=== PATIENT | female | born 1940 | race Caucasian/White ===

== ENCOUNTER → 2024-03-18 10:50 | Outpatient (CLI) | payer MEDICARE, OTHER, SELFPAY | PROVIDERS: PCP Physician Assistant Medical; Visit Provider Physician Assistant Medical | DX: S80.819A Abrasion, unspecified lower leg, initial encounter (principal); L03.90 Cellulitis, unspecified | CPT/HCPCS: 87070; 87075; 87205 ==

== ENCOUNTER → 2024-05-18 10:48 | Outpatient (CLI) | payer MEDICARE, OTHER, SELFPAY | PROVIDERS: PCP Physician Assistant Medical; Visit Provider Physician Assistant Medical | DX: L03.90 Cellulitis, unspecified (principal); S80.819A Abrasion, unspecified lower leg, initial encounter; L03.116 Cellulitis of left lower limb; S80.812A Abrasion, left lower leg, initial encounter; I10 Essential (primary) hypertension; E03.9 Hypothyroidism, unspecified | CPT/HCPCS: 87070; 87075; 87205 ==

== ENCOUNTER → 2024-05-25 11:28 | Outpatient (CLI) | payer MEDICARE, OTHER, SELFPAY ==
[2024-05-25 19:09] LABS: Hematocrit 39.7 % (36-46); Hemoglobin 13.3 g/dL (12.0-16.0); Mean Corpuscular HGB Conc 33.6 % (30-36); Mean Corpuscular Hemoglobin 30.8 PG (26-34); Mean Corpuscular Volume 91.5 fL (80-100); Platelet Count 234 X10^3/uL (150-400); Red Blood Cell Count 4.33 X10^6/uL (4.0-5.2); Red Cell Distribution Width 13.6 % (11.6-14.8); White Blood Cell Count 4.5 X10^3/uL (4.5-11.0)
[2024-05-25 19:23] LABS: Alanine Aminotransferase 17 IU/L (<35); Albumin 4.1 g/dL (3.5-5.0); Albumin Globulin Ratio 1.7 (1.0-2.8); Alkaline Phosphatase 67 U/L (38-126); Aspartate Aminotransferase 24 IU/L (14-36); BUN Creatinine Ratio 25.9 (6-22); Bilirubin Total 0.7 mg/dL (0.2-1.3); Blood Urea Nitrogen 29 mg/dL (7-17); C-Reactive Protein Quant < 0.5 mg/dL (<1.0); Calcium 9.2 mg/dL (8.4-10.2); Carbon Dioxide 27 mmol/L (22-32); Chloride 105 mmol/L (98-107); Cholesterol 253 mg/dL (140-199); Estimated Glomerular Filt Rate 49 mL/min (>60); Globulin 2.4 g/dL (1.7-4.1); Glucose 79 mg/dL (80-110); HDL Cholesterol 100 mg/dL (40-60); HEMOLYSIS < 15 (0-50); LDL Cholesterol Calculated 137 mg/dL (<100); Potassium 4.6 mmol/L (3.4-5.1); Sodium 138 mmol/L (137-145); Total Protein 6.5 g/dL (6.3-8.2); Triglycerides 82 mg/dL (35-150)
[2024-05-25 19:43] LABS: TSH w/ Reflex to FT4 2.04 uIU/mL (0.47-4.68)
[2024-05-25 20:13] LABS: Erythrocyte Sedimentation Rate 7 MM/HR (0-20)
== END ==
PROVIDERS: PCP Physician Assistant Medical; Visit Provider Physician Assistant Medical
DX: E03.9 Hypothyroidism, unspecified (principal); E78.00 Pure hypercholesterolemia, unspecified; I10 Essential (primary) hypertension; N19 Unspecified kidney failure; L03.116 Cellulitis of left lower limb; S80.812A Abrasion, left lower leg, initial encounter
CPT/HCPCS: 80053; 80061; 84443; 85027; 85651; 86140

== ENCOUNTER → 2024-05-26 16:27 | Outpatient (CLI) | payer MEDICARE, OTHER, SELFPAY | PROVIDERS: PCP Physician Assistant Medical; Visit Provider Physician Assistant Medical | DX: R82.998 Other abnormal findings in urine (principal); Z87.440 Personal history of urinary (tract) infections | CPT/HCPCS: 87086 ==

== ENCOUNTER → 2024-06-15 10:51 | Outpatient (CLI) | payer MEDICARE, OTHER, SELFPAY ==
[2024-06-15 18:57] LABS: Alanine Aminotransferase 23 IU/L (<35); Albumin 3.8 g/dL (3.5-5.0); Albumin Globulin Ratio 1.4 (1.0-2.8); Alkaline Phosphatase 69 U/L (38-126); Aspartate Aminotransferase 68 IU/L (14-36); BUN Creatinine Ratio 27.7 (6-22); Bilirubin Total 0.7 mg/dL (0.2-1.3); Blood Urea Nitrogen 23 mg/dL (7-17); Calcium 8.9 mg/dL (8.4-10.2); Carbon Dioxide 26 mmol/L (22-32); Chloride 105 mmol/L (98-107); Estimated Glomerular Filt Rate > 60 mL/min (>60); Globulin 2.7 g/dL (1.7-4.1); Glucose 96 mg/dL (80-110); HEMOLYSIS 35 (0-50); Sodium 136 mmol/L (137-145); Total Protein 6.5 g/dL (6.3-8.2)
[2024-06-15 19:30] LABS: TSH w/ Reflex to FT4 1.71 uIU/mL (0.47-4.68)
[2024-06-15 19:43] LABS: Creatinine Urine Random 80.92 mg/dL
[2024-06-15 19:52] LABS: Microalbumin Urine Random < 0.6 mg/dL (0-1.6)
== END ==
PROVIDERS: PCP Physician Assistant Medical; Visit Provider Physician Assistant Medical
DX: E03.9 Hypothyroidism, unspecified (principal); N19 Unspecified kidney failure
CPT/HCPCS: 80053; 82043; 82570; 84443

== ENCOUNTER → 2024-06-22 12:15 | Outpatient (CLI) | payer MEDICARE, OTHER, SELFPAY ==
[2024-06-22 21:02] LABS: Influenza A - CEPHEID Flu A NEGATIVE (NEGATIVE); Influenza B - CEPHEID Flu B NEGATIVE (NEGATIVE); Respiratory Syncytial Virus Negative (Negative)
[2024-06-22 21:48] LABS: COVID-19 CEPHEID 4-PLEX PCR Negative (Negative)
== END ==
PROVIDERS: PCP Physician Assistant Medical; Visit Provider Physician Assistant Medical
DX: J06.9 Acute upper respiratory infection, unspecified (principal)
CPT/HCPCS: 0241U

== ENCOUNTER → 2025-06-23 10:44 | Outpatient (CLI) | payer MEDICARE, OTHER, SELFPAY ==
--- NOTE | 2025-06-23 10:50 | DI.MG.S_ITS ---
MM diagnostic mammo unilat LT, US breast LT limited: 06/23/2025 BI-RADS: 3 CLINICAL: 84-year old female for left diagnostic mammogram and left diagnostic breast ultrasound. Tyrer-Cuzick lifetime risk of 0.2%. No personal or first-degree family history of breast cancer. The patient presents for additional evaluation of an inconclusive screening mammogram. PRIOR EXAMS Outside films dated 04/06/2025, 04/01/2024. MAMMOGRAPHY TECHNIQUE: 2D and 3D (tomosynthesis) digital mammographic views obtained, with additional images as needed for full coverage. Current study was also evaluated with a Computer Aided Detection (CAD) system. ULTRASOUND TECHNIQUE Real-time chase scale imaging of the area of clinical interest was performed with image documentation. TARGETED Left Breast Ultrasound: Real-time ultrasound exam was performed focused to area of clinical and/or imaging concern. DENSITY Left: B. There are scattered areas of fibroglandular density. MAMMOGRAPHY FINDINGS Left: CC only, Outer, Middle depth, measuring 0.9cm: Correlating with findings on screening mammogram, there is an asymmetry seen only on one view. This finding projects to the superior breast on the tomosynthesis images. This appears less conspicuous with additional views and may represent fibroglandular tissue. ULTRASOUND FINDINGS Left: The area from 11 to 3 o'clock, 6 cm from the nipple was scanned. There is no sonographic abnormality to account for imaging concern on mammography. IMPRESSION: Left (Asymmetry): CC only, Outer, Middle depth, measuring 0.9cm * Probably Benign. RECOMMENDATIONS Left: CC only, Outer, Middle depth * Six month followup with diagnostic mammography. COMMENTS: Findings and recommendations were conveyed to the patient during today's evaluation. OVERALL ASSESSMENT CATEGORY BI-RADS-3: Probably Benign. ELECTRONICALLY SIGNED: Nury Key M.D. on 06/23/2025 at 03:08:40 PM PT Interpreting Station ID: [id number]
--- NOTE | 2025-06-23 10:50 | DI.RAD.S_ITS ---
PROCEDURE: XR DEXA AXIAL SKELETON INDICATIONS: fu DXA -- last done 5 yrs ago COMPARISON: None. FINDINGS: Lumbar Spine: Bone mineral density 1.125 g/cm2, T score 0.7, normal. Left Femoral Neck: Bone mineral density 0.738 g/cm2, T score -1. Left Hip: Bone mineral density 0.915 g/cm2, T score -0.2, normal. Fracture Risk Calculation (when applicable): Not reported due to normal bone mineralization. (T score greater or equal to -1.0 to: NORMAL) (T score from -1.1 to -2.4: OSTEOPENIA) (T score less than or equal to -2.5: OSTEOPOROSIS) IMPRESSION: Normal bone mineralization. Priors not available at time of dictation. Follow-up guidelines as follows: Osteoporosis: Consider a repeat DEXA and Vertebral Fracture Assessment (VFA) exam in 2 years or sooner if medically necessary, to reassess this patient's status. Osteopenia: Consider a repeat DEXA in 2-3 years to reassess this patient's status, or if there is a new clinical indication. Normal: Consider a repeat DEXA in 5 years or sooner, or if there is a new clinical indication. All treatment decisions require clinical judgment and consideration of individual patient factors, including patient preferences, comorbidities, previous drug use, risk factors not captured in the FRAX model (e.g., frailty, falls, vitamin D deficiency, increased bone turnover, interval significant decline in bone density ) and possible under- or over-estimation of fracture risk by FRAX. In addition, the NOF Guide recommends that FDA-approved medical therapies be considered in postmenopausal women and men age >= 50 years with a: * Hip or vertebral (clinical or morphometric) fracture * T-score of <=-2.5 at the spine or hip * Ten-year fracture probability by FRAX of >= 3% for hip fracture or >=20% for major osteoporotic fracture. Dictated by: Vnicent Mcneal M.D. on 06/23/2025 at 21:59 Approved by: Vincent Mcneal M.D. on 06/23/2025 at 21:59
== END ==
PROVIDERS: PCP Family Medicine; Referring Provider Family Medicine; Visit Provider Family Medicine
DX: R92.8 Other abnormal and inconclusive findings on diagnostic imaging of breast (principal); N64.89 Other specified disorders of breast; R92.322 Mammographic fibroglandular density, left breast; Z78.0 Asymptomatic menopausal state
CPT/HCPCS: 76642; 77065; 77080; G0279